=== PATIENT | female | born 1945 | race Two or more races ===

== ENCOUNTER 2021-04-02 17:32 | Inpatient (IN) | payer MEDICARE, MEDICAID ==
[~2021-04-02] VITALS: Ht 160 cm; Wt 62.6 kg
[2021-04-02] MEDS ORDERED: MAGN400O6 PO (18:17)
[2021-04-02] MEDS ORDERED: NIFE60TA2 PO (18:17)
[2021-04-02] MEDS ORDERED: ONDA4TAB5 PO (18:17)
[2021-04-02] MEDS ORDERED: PANT40TA2 PO (18:17)
[2021-04-02 18:47] VITALS: BP 127/57
[2021-04-02] MEDS ORDERED: MAG30ORA PO (18:55)
[2021-04-02] MEDS ORDERED: ACET-2154 PO (18:55)
[2021-04-02] MEDS ORDERED: ENOX40DI SQ (18:55)
[2021-04-02] MEDS ORDERED: ATOR20TA PO (18:55)
[2021-04-02] MEDS ORDERED: LOSA100T31 PO (18:55)
[2021-04-02] MEDS ORDERED: GABA100C PO (18:55)
--- NOTE | 2021-04-02 18:59 | NUR ---
Patient admitted from [facility], ORIF to right hip, stable condition, alert, oriented x4, no distress noted, DNP Denial made aware
--- NOTE | 2021-04-02 19:20 | NUR ---
Admission report received from [facility] nurse. Patient awake, alert and oriented x 4, Guyanese speaking with little Ecuadorean. Able to make needs known. Limited mobility noted on right LE d/t S/p right hip ORIF with dressing dry and intact. Denies any pain/discomforts at this time. Routine admission care done. Plan of care initiated.
[2021-04-02 20:00] VITALS: BP 113/58
[2021-04-03 04:53] VITALS: BP 113/66
--- NOTE | 2021-04-03 06:28 | NUR ---
Shift End Report: VS stable. Slept well. No complaint presented all night. All needs attended and met. Continue care as planned.
[2021-04-03 08:00] VITALS: BP 110/57
[2021-04-03] MEDS: OXYCODONE HCL 5 MG TABLET PO PRN ×2 (08:56→19:34)
[2021-04-03 15:25] VITALS: BP 109/61
[2021-04-03] MEDS ORDERED: MAG HYDROX/AL HYDROX/SIMETH 30 ML LIQUID UDC PO PRN (17:45)
[2021-04-03] MEDS ORDERED: MAGNESIUM HYDROXIDE 30 ML LIQUID UDC PO PRN (17:45)
[2021-04-03] MEDS: NIFEdipine XL 60 MG TABSR PO SCH (18:32)
[2021-04-03] MEDS: LOSARTAN POTASSIUM 50 MG TABLET PO SCH (18:33)
[2021-04-03] MEDS: GABAPENTIN 100 MG CAPSULE PO SCH (18:33)
--- NOTE | 2021-04-03 18:53 | NUR ---
Received patient awake on bed with no respiratory distress noted. Alert and oriented x4, able to make needs known in Turkish and a little Faroese. Assisted in turning and repositioning as needed. Will continue to monitor.
[2021-04-03 20:00] VITALS: BP 115/64
[2021-04-03] MEDS: ENOXAPARIN SODIUM 40 MG/0.4 ML DISP.SYRIN SQ SCH (20:15)
[2021-04-03] MEDS: ATORVASTATIN 20 MG TABLET PO SCH (20:16)
[2021-04-04 04:00] VITALS: BP 112/62
[2021-04-04] MEDS: PANTOPRAZOLE SODIUM 40 MG TABLET.DR PO SCH (06:11)
[2021-04-04] MEDS: LOSARTAN POTASSIUM 50 MG TABLET PO SCH (08:18)
[2021-04-04] MEDS: NIFEdipine XL 60 MG TABSR PO SCH (08:18)
[2021-04-04] MEDS: GABAPENTIN 100 MG CAPSULE PO SCH (08:19)
[2021-04-04] MEDS: OXYCODONE HCL 5 MG TABLET PO PRN ×2 (08:19→23:25)
[2021-04-04 08:26] VITALS: BP 121/59
[2021-04-04 15:46] VITALS: BP 95/75
[2021-04-04 20:00] VITALS: BP 117/55
[2021-04-04] MEDS: ATORVASTATIN 20 MG TABLET PO SCH (20:07)
[2021-04-04] MEDS: ENOXAPARIN SODIUM 40 MG/0.4 ML DISP.SYRIN SQ SCH (20:07)
--- NOTE | 2021-04-04 20:10 | NUR ---
PATIENT AWAKE IN BED. A/O X4. YORUBA SPEAKING BUT ABLE TO MAKE NEEDS KNOWN. VS WNL. DENIES PAIN AT THIS TIME. NO RESP. DISTRESS NOTED. CALL LIGHT IN REACH. ALL NEEDS ATTENDED. WILL CONTINUE TO MONITOR AND ASSESS.
[2021-04-05 04:00] VITALS: BP 126/69
[2021-04-05] MEDS: OXYCODONE HCL 5 MG TABLET PO PRN ×2 (04:38→20:25)
[2021-04-05] MEDS: PANTOPRAZOLE SODIUM 40 MG TABLET.DR PO SCH (06:15)
--- NOTE | 2021-04-05 06:45 | NUR ---
PATIENT ASLEEP IN BED. NO S/S OF ANY PAIN OR DISCOMFORT. PATIENT WAS PREVIOUSLY MEDICATED FOR PAIN. NO RESP. DISTRESS NOTED. VS WNL. CALL LIGHT IN REACH. ALL NEEDS ATTENDED. WILL CONTINUE TO MONITOR AND ASSESS.
[2021-04-05 08:07] VITALS: BP 117/68
[2021-04-05] MEDS: LOSARTAN POTASSIUM 50 MG TABLET PO SCH (08:22)
[2021-04-05] MEDS: GABAPENTIN 100 MG CAPSULE PO SCH (08:22)
[2021-04-05] MEDS: NIFEdipine XL 60 MG TABSR PO SCH (08:22)
[2021-04-05 15:17] VITALS: BP 123/69
[2021-04-05 20:00] VITALS: BP 117/57
[2021-04-05] MEDS: ATORVASTATIN 20 MG TABLET PO SCH (20:24)
[2021-04-05] MEDS: ENOXAPARIN SODIUM 40 MG/0.4 ML DISP.SYRIN SQ SCH (20:25)
[2021-04-06 04:00] VITALS: BP 114/58
[2021-04-06] MEDS: PANTOPRAZOLE SODIUM 40 MG TABLET.DR PO SCH (06:53)
[2021-04-06 08:00] VITALS: BP 135/59
[2021-04-06] MEDS: NIFEdipine XL 60 MG TABSR PO SCH (08:14)
[2021-04-06] MEDS: LOSARTAN POTASSIUM 50 MG TABLET PO SCH (08:15)
[2021-04-06] MEDS: GABAPENTIN 100 MG CAPSULE PO SCH (08:15)
[2021-04-06 16:10] VITALS: BP 114/53
[2021-04-06 20:00] VITALS: BP 120/85
[2021-04-06] MEDS: ATORVASTATIN 20 MG TABLET PO SCH (20:19)
[2021-04-06] MEDS: OXYCODONE HCL 5 MG TABLET PO PRN (20:19)
[2021-04-06] MEDS: ENOXAPARIN SODIUM 40 MG/0.4 ML DISP.SYRIN SQ SCH (20:21)
[2021-04-07 04:00] VITALS: BP 113/59
[2021-04-07] MEDS: PANTOPRAZOLE SODIUM 40 MG TABLET.DR PO SCH (05:58)
[2021-04-07 08:00] VITALS: BP 103/79
[2021-04-07] MEDS: GABAPENTIN 100 MG CAPSULE PO SCH (08:18)
[2021-04-07] MEDS: NIFEdipine XL 60 MG TABSR PO SCH (08:38)
[2021-04-07] MEDS: LOSARTAN POTASSIUM 50 MG TABLET PO SCH (08:38)
[2021-04-07] MEDS: OXYCODONE HCL 5 MG TABLET PO PRN (12:51)
[2021-04-07 16:00] VITALS: BP_SYST 116; BP_SYST 128; BP_DIAS 62; BP_DIAS 76
[2021-04-07 20:00] VITALS: BP 120/72
[2021-04-07] MEDS: ATORVASTATIN 20 MG TABLET PO SCH (20:40)
[2021-04-07] MEDS: ACETAMINOPHEN 325 MG TABLET PO PRN (20:40)
[2021-04-07] MEDS: ENOXAPARIN SODIUM 40 MG/0.4 ML DISP.SYRIN SQ SCH (20:44)
--- NOTE | 2021-04-08 01:34 | NUR ---
Patient AxOx 4, Portuguese speaking with little Malay. Able to make needs known. right hip dressing dry and intact. C/ o mild pain, administered Tylenol PRN. Needs attend too. Kept comfortable. Safety measured maintained. Call light and personal belongings are within pt reach.
[2021-04-08 04:00] VITALS: BP 132/55
[2021-04-08] MEDS: PANTOPRAZOLE SODIUM 40 MG TABLET.DR PO SCH (06:16)
[2021-04-08 08:00] VITALS: BP 159/68
[2021-04-08] MEDS: LOSARTAN POTASSIUM 50 MG TABLET PO SCH (08:09)
[2021-04-08] MEDS: GABAPENTIN 100 MG CAPSULE PO SCH (08:09)
[2021-04-08] MEDS: NIFEdipine XL 60 MG TABSR PO SCH (08:10)
[2021-04-08] MEDS: ACETAMINOPHEN 325 MG TABLET PO PRN ×2 (09:33→20:24)
[2021-04-08 16:17] VITALS: BP 119/48
[2021-04-08 20:12] VITALS: BP 100/54
[2021-04-08] MEDS: ATORVASTATIN 20 MG TABLET PO SCH (20:24)
[2021-04-08] MEDS: ENOXAPARIN SODIUM 40 MG/0.4 ML DISP.SYRIN SQ SCH (20:25)
--- NOTE | 2021-04-08 22:29 | NUR ---
Patient AxOx 4, Cook Islander speaking with little Vietnamese. Able to make needs known. right hip dressing dry and intact, with [place] covered with border gauze per pt request does not want it rubbing against the bed sheet. C/ o mild pain, administered Tylenol PRN. Needs attend too. Kept comfortable. Safety measured maintained. Call light and personal belongings are within pt reach.Will monitor throughout the night
[2021-04-09 04:36] VITALS: BP 136/68
[2021-04-09] MEDS: PANTOPRAZOLE SODIUM 40 MG TABLET.DR PO SCH (06:06)
[2021-04-09 06:19] LABS: HEMATOCRIT 27.8 % (31.2-41.9); MEAN CORPUSCULAR HEMOGLOBIN 30.7 uug (24.7-32.8); MEAN CORPUSCULAR VOLUME 92.5 fL (75.5-95.3); PLATELET COUNT (AUTO) 442 K/uL (179-408)
[2021-04-09 06:47] LABS: THYROID STIMULATING HORMONE 1.342 mIU/mL (0.358-3.740)
[2021-04-09 07:15] LABS: BILIRUBIN,TOTAL 0.6 mg/dL (0.2-1.0); CREATININE 0.7 mg/dL (0.6-1.3); MAGNESIUM 2.1 mg/dL (1.8-2.4); PHOSPHOROUS 3.2 mg/dL (2.5-4.9); POTASSIUM 3.9 mmol/L (3.5-5.1); TOTAL PROTEIN, SERUM 6.4 g/dL (6.4-8.2)
[2021-04-09 08:00] VITALS: BP 138/74
[2021-04-09] MEDS: GABAPENTIN 100 MG CAPSULE PO SCH (08:09)
[2021-04-09] MEDS: NIFEdipine XL 60 MG TABSR PO SCH (08:10)
[2021-04-09] MEDS: LOSARTAN POTASSIUM 50 MG TABLET PO SCH (08:11)
--- NOTE | 2021-04-09 11:02 | NUR ---
WOUND CARE CONSULT: PT PRESENTS WITH RT THIGH SKIN TEAR AND CLOSED INCISIONS TO RT HIP AND OUTER THIGH. RECOMMENDATIONS MADE FOR SKIN PROTECTION AND WOUND CARE. DISCUSSED WITH NURSING STAFF. IN AGREEMENT WITH PLAN OF CARE. Addendum: 04/09/21 at 1103 by ED PASCULA RN Amended: Links added.
--- NOTE | 2021-04-09 13:32 | NUR ---
weight bearing status changed to as tolerated per dr boston
--- NOTE | 2021-04-09 15:07 | NUR ---
[place] removed from right hip incision site, well approximated, slightly red at right hip incision site, no purulent drainage, no malodorous, continue to monitor
[2021-04-09 15:52] VITALS: BP 108/57
[2021-04-09 20:00] VITALS: BP 128/50
[2021-04-09] MEDS: ATORVASTATIN 20 MG TABLET PO SCH (20:06)
[2021-04-09] MEDS: ACETAMINOPHEN 325 MG TABLET PO PRN (20:08)
[2021-04-09] MEDS: ENOXAPARIN SODIUM 40 MG/0.4 ML DISP.SYRIN SQ SCH (20:08)
[2021-04-10 04:49] VITALS: BP 123/70
[2021-04-10] MEDS: PANTOPRAZOLE SODIUM 40 MG TABLET.DR PO SCH (06:00)
--- NOTE | 2021-04-10 06:15 | NUR ---
Patient AxO4, Tamazight speaking with little Irish. No respiratory distress noted. Slept throughout the night, easily arousable and able to make needs known. All needs attended. Call light placed within reach. Will continue to monitor.
[2021-04-10 08:16] VITALS: BP 138/66
[2021-04-10] MEDS: NIFEdipine XL 60 MG TABSR PO SCH (08:26)
[2021-04-10] MEDS: GABAPENTIN 100 MG CAPSULE PO SCH (08:26)
[2021-04-10] MEDS: LOSARTAN POTASSIUM 50 MG TABLET PO SCH (08:27)
[2021-04-10] MEDS: CYANOCOBALAMIN 1000 MCG/ML VIAL IM SCH (08:27)
--- NOTE | 2021-04-10 19:03 | NUR ---
The patient is alert/oriented x4. No respiratory distress noted. Denies pain. Encouraged verbalization of concerns. Kept patient clean, dry, and comfortable. All due meds given. All needs attended. Frequent safety checks done. Will continue to monitor for any significant changes. Endorsed to the next shift.
--- NOTE | 2021-04-10 19:10 | NUR ---
Patient report received. Seen patient in bed resting. Awake, alert and oriented x 4. Patient is comfortable on room air. No reports of shortness of breath. No IV access. Patient is ambulatory with walker and stand by assist. No reports of pain at this time. Bed in low and locked position. Call light within reach. Bed alarm on.
[2021-04-10 20:00] VITALS: BP 111/59
[2021-04-10] MEDS: ATORVASTATIN 20 MG TABLET PO SCH (21:17)
[2021-04-10] MEDS: ENOXAPARIN SODIUM 40 MG/0.4 ML DISP.SYRIN SQ SCH (21:19)
[2021-04-10] MEDS: ACETAMINOPHEN 325 MG TABLET PO PRN (21:24)
[2021-04-11 04:00] VITALS: BP 134/62
--- NOTE | 2021-04-11 05:40 | NUR ---
Patient is awake, alert and oriented x 4. Slept well through the night. Had complained of mild pain on the right leg. Given ordered acetaminophen 650 mg. Assessed, patient reported pain relief. Vital signs within normal limits. No reports of shortness of breath at this time. Medications given as ordered. Bed in low and locked position. Call light within reach.
[2021-04-11] MEDS: PANTOPRAZOLE SODIUM 40 MG TABLET.DR PO SCH (06:16)
[2021-04-11 08:26] VITALS: BP 157/80
[2021-04-11] MEDS: LOSARTAN POTASSIUM 50 MG TABLET PO SCH (08:59)
[2021-04-11] MEDS: GABAPENTIN 100 MG CAPSULE PO SCH (08:59)
[2021-04-11] MEDS: NIFEdipine XL 60 MG TABSR PO SCH (08:59)
[2021-04-11] MEDS: CYANOCOBALAMIN 1000 MCG/ML VIAL IM SCH (09:00)
[2021-04-11 14:40] VITALS: BP 119/60
--- NOTE | 2021-04-11 18:41 | NUR ---
The patient is alert/oriented x4, able to make needs known. No respiratory distress noted. Dressing changed to her right hip/thigh, no bleeding or drainage noted, skin intact, no signs of infection noted. Kept patient clean, dry, and comfortable. All needs and concerns attended. All due medications given as ordered. Frequent safety checks done. Will continue to monitor for any significant changes. Endorsed to the next shift.
[2021-04-11] MEDS: ATORVASTATIN 20 MG TABLET PO SCH (20:09)
[2021-04-11] MEDS: ENOXAPARIN SODIUM 40 MG/0.4 ML DISP.SYRIN SQ SCH (20:15)
[2021-04-11 20:16] VITALS: BP 113/65
--- NOTE | 2021-04-11 21:29 | NUR ---
Received pt resting in bed. AAO x4, Gambian speaking, able to make needs known. No acute distress noted. Denies pain/ discomfort. Due meds given as ordered. Safety measures maintained. Call light and personal items within reach. Will continue to monitor.
[2021-04-12 04:00] VITALS: BP 120/63
[2021-04-12] MEDS: PANTOPRAZOLE SODIUM 40 MG TABLET.DR PO SCH (06:10)
[2021-04-12 08:00] VITALS: BP 136/55
--- NOTE | 2021-04-12 08:30 | NUR ---
Patient in bed , alert and oriented x 4, Libyan speaking. Pleasant and cooperative upon assessment. VS WNL. Call light within easy reach . Patient in room air saturating at 97%. All due meds given per MD order. All needs met.
[2021-04-12] MEDS: LOSARTAN POTASSIUM 50 MG TABLET PO SCH (09:05)
[2021-04-12] MEDS: NIFEdipine XL 60 MG TABSR PO SCH (09:05)
[2021-04-12] MEDS: GABAPENTIN 100 MG CAPSULE PO SCH (09:05)
[2021-04-12] MEDS: CYANOCOBALAMIN 1000 MCG/ML VIAL IM SCH (09:08)
[2021-04-12] MEDS: OXYCODONE HCL 5 MG TABLET PO PRN (09:08)
--- NOTE | 2021-04-12 10:15 | NUR ---
INTERDISCIPLINARY TEAM CONFERENCE
[2021-04-12 16:16] VITALS: BP 103/43
--- NOTE | 2021-04-12 17:00 | NUR ---
Family came to visit.
[2021-04-12 20:05] VITALS: BP 107/57
[2021-04-12] MEDS: ATORVASTATIN 20 MG TABLET PO SCH (20:25)
[2021-04-12] MEDS: ENOXAPARIN SODIUM 40 MG/0.4 ML DISP.SYRIN SQ SCH (20:26)
--- NOTE | 2021-04-12 20:59 | NUR ---
Received pt resting in bed. AAO x4. Belarusian speaking, able to make needs known. No acute distress noted. Due meds given as ordered. Safety measures maintained. Call light and personal items within reach. Will continue to monitor.
[2021-04-13 05:12] VITALS: BP 128/66
[2021-04-13] MEDS: PANTOPRAZOLE SODIUM 40 MG TABLET.DR PO SCH (06:11)
[2021-04-13 08:00] VITALS: BP 126/59
[2021-04-13] MEDS: GABAPENTIN 100 MG CAPSULE PO SCH (08:54)
[2021-04-13] MEDS: NIFEdipine XL 60 MG TABSR PO SCH (08:55)
[2021-04-13] MEDS: LOSARTAN POTASSIUM 50 MG TABLET PO SCH (08:56)
[2021-04-13] MEDS: CYANOCOBALAMIN 1000 MCG/ML VIAL IM SCH (09:33)
[2021-04-13 16:30] VITALS: BP 130/41
--- NOTE | 2021-04-13 18:06 | NUR ---
no changes noted during shift, participated with PT, OT, tolerated well
[2021-04-13 19:46] VITALS: BP 127/66
[2021-04-13] MEDS: ATORVASTATIN 20 MG TABLET PO SCH (20:05)
[2021-04-13] MEDS: ENOXAPARIN SODIUM 40 MG/0.4 ML DISP.SYRIN SQ SCH (20:09)
--- NOTE | 2021-04-13 20:21 | NUR ---
Received pt resting in bed. AAO x4. Bangladeshi speaking. Able to make needs known. Pt given education regarding Lovenox. No acute distress noted. Denies pain/ discomfort. Due meds given as ordered. Safety measures maintained. Call light and personal items within reach. Will continue to monitor.
[2021-04-14] MEDS: PANTOPRAZOLE SODIUM 40 MG TABLET.DR PO SCH (06:12)
[2021-04-14 06:24] VITALS: BP 132/68
[2021-04-14 07:52] VITALS: BP 139/58
[2021-04-14] MEDS: CYANOCOBALAMIN 1000 MCG/ML VIAL IM SCH (08:28)
[2021-04-14] MEDS: LOSARTAN POTASSIUM 50 MG TABLET PO SCH (08:28)
[2021-04-14] MEDS: NIFEdipine XL 60 MG TABSR PO SCH (08:28)
[2021-04-14] MEDS: GABAPENTIN 100 MG CAPSULE PO SCH (08:28)
[2021-04-14 16:28] VITALS: BP 118/70
--- NOTE | 2021-04-14 19:04 | NUR ---
The patient is alert/oriented x4, able to make needs known. Dressing changed to her right hip/thigh, no bleeding or drainage noted, skin intact, no signs of infection noted. Kept patient clean, dry, and comfortable. All needs and concerns attended. All due medications given as ordered. Frequent safety checks done. Will continue to monitor for any significant changes. Endorsed to the next shift.
[2021-04-14 20:00] VITALS: BP 139/67
[2021-04-14] MEDS: ENOXAPARIN SODIUM 40 MG/0.4 ML DISP.SYRIN SQ SCH (20:46)
[2021-04-14] MEDS: ATORVASTATIN 20 MG TABLET PO SCH (21:17)
[2021-04-14] MEDS: OXYCODONE HCL 5 MG TABLET PO PRN (21:22)
[2021-04-15 04:00] VITALS: BP 117/56
[2021-04-15] MEDS: PANTOPRAZOLE SODIUM 40 MG TABLET.DR PO SCH (06:37)
--- NOTE | 2021-04-15 06:57 | NUR ---
Slept well. Medicated once for pain with relief. No further complaint presented. All needs attended and met. Continue current rehab plan of care.
[2021-04-15 08:00] VITALS: BP 126/74
[2021-04-15] MEDS: LOSARTAN POTASSIUM 50 MG TABLET PO SCH (08:28)
[2021-04-15] MEDS: GABAPENTIN 100 MG CAPSULE PO SCH (08:28)
[2021-04-15] MEDS: NIFEdipine XL 60 MG TABSR PO SCH (08:28)
[2021-04-15] MEDS ORDERED: CYANOCOBALAMIN 1000 MCG/ML VIAL IM SCH ×2 (09:00→13:00)
[2021-04-15 16:00] VITALS: BP 123/58
--- NOTE | 2021-04-15 17:00 | NUR ---
Patient discharged via private care on a wheelchair with her family. VS WNL. No distress identified. Skin intact, dressing changed, no s/s of infection or bleeding, tolerated well. Patient denies pain. Discharge instructions given with understanding noted. MD aware.
[2021-04-23] MEDS ORDERED: CYANOCOBALAMIN 1000 MCG/ML VIAL IM SCH (09:00)
== END 2021-04-15 17:00 | disposition home health service (06) | DRG 559 ==
PROVIDERS: ADMIT Physical Medicine & Rehabilitation Pain Medicine; ATTEND Physical Medicine & Rehabilitation Pain Medicine
DX: M84.451D Pathological fracture, right femur, subsequent encounter for fracture with routine healing (principal); E43 Unspecified severe protein-calorie malnutrition; D68.59 Other primary thrombophilia; Z91.81 History of falling; I10 Essential (primary) hypertension; M06.9 Rheumatoid arthritis, unspecified; M85.80 Other specified disorders of bone density and structure, unspecified site; G62.9 Polyneuropathy, unspecified; I73.9 Peripheral vascular disease, unspecified; E78.5 Hyperlipidemia, unspecified; D50.0 Iron deficiency anemia secondary to blood loss (chronic); E53.8 Deficiency of other specified B group vitamins; M19.90 Unspecified osteoarthritis, unspecified site; R26.81 Unsteadiness on feet
CPT/HCPCS: 36415; 73502; 82652; 83735; 84100; 84443; 85025; J1650; J3420